=== PATIENT | male | born 1985 | race Caucasian/White ===

== ENCOUNTER 2018-12-03 05:51 | Emergency (ER) | payer MEDICAID, OTHER ==
[~2018-12-03] VITALS: Ht 175.3 cm; Wt 63.5 kg
--- OUTSIDE RECORDS SUMMARY | 2018-12-03 05:58 | XMS REPORT ---
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 Phone Ender MAE Unavailable PROBLEMS Type Condition ICD9-CM Code [id number] Code Onset Dates Condition Status SNOMED Code Problem Intermittent explosive disorder in adult F63.81 Active 911515676 Problem Uncomplicated alcohol dependence F10.20 Active 91659809 Problem Alcohol abuse F10.10 Active 19281137 Problem Reactive depression F32.9 Active 04108829 Problem Anxiety and depression F41.8 Active 314575686 ALLERGIES No Information ENCOUNTERS Encounter Location Date Diagnosis [place] [id number] [place] [address] 15535- 8398 Nov, Alcohol abuse F10.10 ; Uncomplicated alcohol dependence F10.20 ; Intermittent explosive disorder in adult F63.81 and Anxiety and depression F41.8 [place] [id number] [place] [address] 97230- 0178 30 Oct, 2017 Alcohol abuse F10.10 ; Anxiety and depression F41.8 ; Uncomplicated alcohol dependence F10.20 and Intermittent explosive disorder in adult F63.[address] [place] [address] 07466- 4058 Oct, Reactive depression F32.9 ; Anxiety and depression F41.8 ; Uncomplicated alcohol dependence F10.20 ; Intermittent explosive disorder in adult F63.81 and Alcohol abuse F10.10 [place] [id number] [place] [address] 40251- 2831 Oct, Reactive depression F32.9 ; Anxiety and depression F41.8 ; Alcohol abuse F10.10 ; Uncomplicated alcohol dependence F10.20 and Intermittent explosive disorder in adult F63.[address] [id number] [address] Oct, Alcohol abuse F10.10 ; Anxiety and depression F41.8 and Reactive depression F32.9 [place] [address] [place] [id number] [place] [address] 28145- 5676 Oct, Alcohol abuse F10.10 ; Anxiety and depression F41.8 and Reactive depression F32.9 [place] [address] [place] [id number] [place] [address] 93484- 2332 Aug, Reactive depression F32.9 ; Alcohol abuse F10.10 ; Anxiety and depression F41.8 ; Intermittent explosive disorder in adult F63.81 and Uncomplicated alcohol dependence F10.20 [place] [address] [place] [id number] [place] [address] 98520- 2814 Aug, Alcohol abuse F10.10 ; Anxiety and depression F41.8 ; Reactive depression F32.9 ; Uncomplicated alcohol dependence F10.20 and Intermittent explosive disorder in adult F63.81 [place] [address] [place] [id number] [place] [address] 11540- 2614 Aug, Alcohol abuse F10.10 ; Anxiety and depression F41.8 ; Reactive depression F32.9 and Uncomplicated alcohol dependence F10.20 [place] [address] [place] [address] 16816- 3186 Jul, Alcohol abuse F10.10 ; Anxiety and depression F41.8 ; Reactive depression F32.9 and Uncomplicated alcohol dependence F10.20 [place] [address] [place] [address] 88941- 4280 Jul, Reactive depression F32.9 ; Anxiety and depression F41.8 ; Alcohol abuse F10.10 and Uncomplicated alcohol dependence F10.20 [place] [address] [place] [address] 03011- 8931 Jul, Reactive depression F32.9 ; Anxiety and depression F41.8 ; Alcohol abuse F10.10 and Uncomplicated alcohol dependence F10.20 [place] [address] [id number] [address] 27[address] Jul, Alcohol abuse F10.10 ; Anxiety and depression F41.8 ; Reactive depression F32.9 and Uncomplicated alcohol dependence F10.20 [place] [address] [place] [id number] [place] [address] 81224- 7716 May, Reactive depression F32.9 ; Anxiety and depression F41.8 and Alcohol abuse F10.10 [place] [address] [place] [id number] [place] [address] 56972- 4124 May, Alcohol abuse F10.10 ; Anxiety and depression F41.8 and Reactive depression F32.9 [place] [id number] [place] [address] 81944- 4901 May, Alcohol abuse F10.10 ; Anxiety and depression F41.8 and Reactive depression F32.9 [place] [address] [place] [address] 35831- 8040 May, Reactive depression F32.9 ; Anxiety and depression F41.8 and Alcohol abuse F10.10 IMMUNIZATIONS No Known Immunizations SOCIAL HISTORY Never Assessed REASON FOR VISIT f/u PLAN OF CARE Activity Details Follow Up Next available Reason:Depression, anger, anxiety VITAL SIGNS MEDICATIONS Unknown Medications RESULTS No Results PROCEDURES Procedure Date Ordered Result Body Site Psychotherapy, patient &/family, 30 minutes, established patient November 27, 2017 INSTRUCTIONS MEDICATIONS ADMINISTERED No Known Medications
--- OUTSIDE RECORDS SUMMARY | 2018-12-03 05:58 | XMS REPORT ---
Author Author MAE Handley Organization [facility] Address [address] [place] [address] Care Team Providers Care Stadium Manager Name Role Phone Ender MAE Unavailable PROBLEMS Type Condition ICD9-CM Code [id number] Code Onset Dates Condition Status SNOMED Code Problem Intermittent explosive disorder in adult F63.81 Active 781470633 Problem Uncomplicated alcohol dependence F10.20 Active 57600893 Problem Alcohol abuse F10.10 Active 05980340 Problem Reactive depression F32.9 Active 94163858 Problem Anxiety and depression F41.8 Active 622337290 ALLERGIES No Information ENCOUNTERS Encounter Location Date Diagnosis [place] [id number] [place] [address] 56533- 8736 Nov, Alcohol abuse F10.10 ; Uncomplicated alcohol dependence F10.20 ; Intermittent explosive disorder in adult F63.81 and Anxiety and depression F41.8 [place] [id number] [place] [address] 53618- 7247 30 Oct, 2017 Alcohol abuse F10.10 ; Anxiety and depression F41.8 ; Uncomplicated alcohol dependence F10.20 and Intermittent explosive disorder in adult F63.[address] [place] [address] 64277- 3190 Oct, Reactive depression F32.9 ; Anxiety and depression F41.8 ; Uncomplicated alcohol dependence F10.20 ; Intermittent explosive disorder in adult F63.81 and Alcohol abuse F10.10 [place] [id number] [place] [address] 34092- 6643 Oct, Reactive depression F32.9 ; Anxiety and depression F41.8 ; Alcohol abuse F10.10 ; Uncomplicated alcohol dependence F10.20 and Intermittent explosive disorder in adult F63.[address] [id number] [address] 69[address] Oct, Alcohol abuse F10.10 ; Anxiety and depression F41.8 and Reactive depression F32.9 [place] [address] [place] [id number] [place] [address] 29259- 4868 Oct, Alcohol abuse F10.10 ; Anxiety and depression F41.8 and Reactive depression F32.9 [place] [address] [place] [id number] [place] [address] 50925- 0776 Aug, Reactive depression F32.9 ; Alcohol abuse F10.10 ; Anxiety and depression F41.8 ; Intermittent explosive disorder in adult F63.81 and Uncomplicated alcohol dependence F10.20 [place] [address] [place] [id number] [place] [address] 44384- 3648 Aug, Alcohol abuse F10.10 ; Anxiety and depression F41.8 ; Reactive depression F32.9 ; Uncomplicated alcohol dependence F10.20 and Intermittent explosive disorder in adult F63.81 [place] [address] [place] [id number] [place] [address] 30685- 1836 Aug, Alcohol abuse F10.10 ; Anxiety and depression F41.8 ; Reactive depression F32.9 and Uncomplicated alcohol dependence F10.20 [place] [address] [place] [address] 14616- 6684 Jul, Alcohol abuse F10.10 ; Anxiety and depression F41.8 ; Reactive depression F32.9 and Uncomplicated alcohol dependence F10.20 [place] [address] [place] [address] 38211- 6881 Jul, Reactive depression F32.9 ; Anxiety and depression F41.8 ; Alcohol abuse F10.10 and Uncomplicated alcohol dependence F10.20 [place] [address] [place] [address] 07980- 4509 Jul, Reactive depression F32.9 ; Anxiety and depression F41.8 ; Alcohol abuse F10.10 and Uncomplicated alcohol dependence F10.20 [place] [address] [place] [id number] [address] 6153 Jul, Alcohol abuse F10.10 ; Anxiety and depression F41.8 ; Reactive depression F32.9 and Uncomplicated alcohol dependence F10.20 [place] [address] [place] [id number] [place] [address] 42889- 5533 May, Reactive depression F32.9 ; Anxiety and depression F41.8 and Alcohol abuse F10.10 [place] [address] [place] [id number] [place] [address] 00372- 6463 May, Alcohol abuse F10.10 ; Anxiety and depression F41.8 and Reactive depression F32.9 [place] [address] [place] [id number] [place] [address] 37961- 8389 May, Alcohol abuse F10.10 ; Anxiety and depression F41.8 and Reactive depression F32.9 [place] [address] [place] [address] 98414- 1485 May, Reactive depression F32.9 ; Anxiety and depression F41.8 and Alcohol abuse F10.10 IMMUNIZATIONS No Known Immunizations SOCIAL HISTORY Never Assessed REASON FOR VISIT f/u PLAN OF CARE Activity Details Follow Up 1 Week Reason:Depression, anger VITAL SIGNS MEDICATIONS Unknown Medications RESULTS No Results PROCEDURES Procedure Date Ordered Result Body Site Psychotherapy, patient &/family, 30 minutes, established patient November 19, 2017 INSTRUCTIONS MEDICATIONS ADMINISTERED No Known Medications
--- OUTSIDE RECORDS SUMMARY | 2018-12-03 05:58 | XMS REPORT ---
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 Role Phone Ender MAE Unavailable PROBLEMS Type Condition ICD9-CM Code [id number] Code Onset Dates Condition Status SNOMED Code Problem Intermittent explosive disorder in adult F63.81 Active 707808381 Problem Uncomplicated alcohol dependence F10.20 Active 25829317 Problem Alcohol abuse F10.10 Active 08437180 Problem Reactive depression F32.9 Active 34561735 Problem Anxiety and depression F41.8 Active 165083108 ALLERGIES No Information ENCOUNTERS Encounter Location Date Diagnosis [place] [id number] [place] [address] 56027- 7826 Nov, Alcohol abuse F10.10 ; Uncomplicated alcohol dependence F10.20 ; Intermittent explosive disorder in adult F63.81 and Anxiety and depression F41.8 [place] [id number] [place] [address] 17711- 4320 30 Oct, 2017 Alcohol abuse F10.10 ; Anxiety and depression F41.8 ; Uncomplicated alcohol dependence F10.20 and Intermittent explosive disorder in adult F63.81 [address] [place] [address] 77223- 4043 Oct, Reactive depression F32.9 ; Anxiety and depression F41.8 ; Uncomplicated alcohol dependence F10.20 ; Intermittent explosive disorder in adult F63.81 and Alcohol abuse F10.10 [place] [id number] [place] [address] 73671- 4085 Oct, Reactive depression F32.9 ; Anxiety and depression F41.8 ; Alcohol abuse F10.10 ; Uncomplicated alcohol dependence F10.20 and Intermittent explosive disorder in adult F63.[address] [id number] [address] 9[address] Oct, Alcohol abuse F10.10 ; Anxiety and depression F41.8 and Reactive depression F32.9 [place] [address] [place] [id number] [place] [address] 52331- 5372 Oct, Alcohol abuse F10.10 ; Anxiety and depression F41.8 and Reactive depression F32.9 [place] [address] [place] [id number] [place] [address] 03481- 6891 Aug, Reactive depression F32.9 ; Alcohol abuse F10.10 ; Anxiety and depression F41.8 ; Intermittent explosive disorder in adult F63.81 and Uncomplicated alcohol dependence F10.20 [place] [address] [place] [id number] [place] [address] 62940- 6080 Aug, Alcohol abuse F10.10 ; Anxiety and depression F41.8 ; Reactive depression F32.9 ; Uncomplicated alcohol dependence F10.20 and Intermittent explosive disorder in adult F63.81 [place] [address] [place] [id number] [place] [address] 09741- 9630 Aug, Alcohol abuse F10.10 ; Anxiety and depression F41.8 ; Reactive depression F32.9 and Uncomplicated alcohol dependence F10.20 [place] [address] [place] [address] 50118- 5466 Jul, Alcohol abuse F10.10 ; Anxiety and depression F41.8 ; Reactive depression F32.9 and Uncomplicated alcohol dependence F10.20 [place] [address] [place] [address] 39500- 1103 Jul, Reactive depression F32.9 ; Anxiety and depression F41.8 ; Alcohol abuse F10.10 and Uncomplicated alcohol dependence F10.20 [place] [address] [place] [address] 44704- 9530 Jul, Reactive depression F32.9 ; Anxiety and depression F41.8 ; Alcohol abuse F10.10 and Uncomplicated alcohol dependence F10.20 [place] [address] [id number] [address] 1968 Jul, Alcohol abuse F10.10 ; Anxiety and depression F41.8 ; Reactive depression F32.9 and Uncomplicated alcohol dependence F10.20 [place] [address] [place] [id number] [place] [address] 78790- 6735 May, Reactive depression F32.9 ; Anxiety and depression F41.8 and Alcohol abuse F10.10 [place] [address] [place] [id number] [place] [address] 80545- 4118 May, Alcohol abuse F10.10 ; Anxiety and depression F41.8 and Reactive depression F32.9 [place] [address] [place] [id number] [place] [address] 99200- 2853 May, Alcohol abuse F10.10 ; Anxiety and depression F41.8 and Reactive depression F32.9 [place] [address] [place] [address] 68626- 0075 May, Reactive depression F32.9 ; Anxiety and depression F41.8 and Alcohol abuse F10.10 IMMUNIZATIONS No Known Immunizations SOCIAL HISTORY Never Assessed REASON FOR VISIT f/u PLAN OF CARE Activity Details Follow Up 1 Week Reason:Anger management, alcohol addiction, relationship problems VITAL SIGNS MEDICATIONS Unknown Medications RESULTS No Results PROCEDURES Procedure Date Ordered Result Body Site Psychotherapy, patient &/family, 45 minutes, established patient November 25, 2017 INSTRUCTIONS MEDICATIONS ADMINISTERED No Known Medications
--- OUTSIDE RECORDS SUMMARY | 2018-12-03 05:58 | XMS REPORT ---
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 Name Role Phone Ender MAE Unavailable PROBLEMS Type Condition ICD9-CM Code [id number] Code Onset Dates Condition Status SNOMED Code Problem Intermittent explosive disorder in adult F63.81 Active 583053474 Problem Uncomplicated alcohol dependence F10.20 Active 53056348 Problem Alcohol abuse F10.10 Active 68560041 Problem Reactive depression F32.9 Active 82540554 Problem Anxiety and depression F41.8 Active 242123647 ALLERGIES No Information ENCOUNTERS Encounter Location Date Diagnosis [place] [id number] [place] [address] 32975- 8086 Nov, Alcohol abuse F10.10 ; Uncomplicated alcohol dependence F10.20 ; Intermittent explosive disorder in adult F63.81 and Anxiety and depression F41.8 [place] [id number] [place] [address] 77562- 2501 30 Oct, 2017 Alcohol abuse F10.10 ; Anxiety and depression F41.8 ; Uncomplicated alcohol dependence F10.20 and Intermittent explosive disorder in adult F63.81 [address] [place] [address] 83443- 4870 Oct, Reactive depression F32.9 ; Anxiety and depression F41.8 ; Uncomplicated alcohol dependence F10.20 ; Intermittent explosive disorder in adult F63.81 and Alcohol abuse F10.10 [place] [id number] [place] [address] 93095- 7279 Oct, Reactive depression F32.9 ; Anxiety and depression F41.8 ; Alcohol abuse F10.10 ; Uncomplicated alcohol dependence F10.20 and Intermittent explosive disorder in adult F63.[address] [id number] [address]- [address]77 Oct, Alcohol abuse F10.10 ; Anxiety and depression F41.8 and Reactive depression F32.9 [place] [address] [place] [id number] [place] [address] 45952- 0524 Oct, Alcohol abuse F10.10 ; Anxiety and depression F41.8 and Reactive depression F32.9 [place] [address] [place] [id number] [place] [address] 30708- 6101 Aug, Reactive depression F32.9 ; Alcohol abuse F10.10 ; Anxiety and depression F41.8 ; Intermittent explosive disorder in adult F63.81 and Uncomplicated alcohol dependence F10.20 [place] [address] [place] [id number] [place] [address] 47010- 0659 Aug, Alcohol abuse F10.10 ; Anxiety and depression F41.8 ; Reactive depression F32.9 ; Uncomplicated alcohol dependence F10.20 and Intermittent explosive disorder in adult F63.81 [place] [address] [place] [id number] [place] [address] 05949- 2629 Aug, Alcohol abuse F10.10 ; Anxiety and depression F41.8 ; Reactive depression F32.9 and Uncomplicated alcohol dependence F10.20 [place] [address] [place] [address] 07298- 5702 Jul, Alcohol abuse F10.10 ; Anxiety and depression F41.8 ; Reactive depression F32.9 and Uncomplicated alcohol dependence F10.20 [place] [address] [place] [address] 31410- 9800 Jul, Reactive depression F32.9 ; Anxiety and depression F41.8 ; Alcohol abuse F10.10 and Uncomplicated alcohol dependence F10.20 [place] [address] [place] [address] 65893- 8786 Jul, Reactive depression F32.9 ; Anxiety and depression F41.8 ; Alcohol abuse F10.10 and Uncomplicated alcohol dependence F10.20 [place] [address] [id number] [address]- 1421 Jul, Alcohol abuse F10.10 ; Anxiety and depression F41.8 ; Reactive depression F32.9 and Uncomplicated alcohol dependence F10.20 [place] [address] [place] [address] [id number] [place] [address] 90482- 6708 May, Reactive depression F32.9 ; Anxiety and depression F41.8 and Alcohol abuse F10.10 [place] [address] [place] [id number] [place] [address] 61143- 6729 May, Alcohol abuse F10.10 ; Anxiety and depression F41.8 and Reactive depression F32.9 [place] [id number] [place] [address] 93214- 8192 May, Alcohol abuse F10.10 ; Anxiety and depression F41.8 and Reactive depression F32.9 [place] [address] [place] [address] 01612- 2068 May, Reactive depression F32.9 ; Anxiety and depression F41.8 and Alcohol abuse F10.10 IMMUNIZATIONS No Known Immunizations SOCIAL HISTORY Never Assessed REASON FOR VISIT f/u PLAN OF CARE Activity Details Follow Up 2 Week Reason:substance addiction, depression, anxiety, relationship problems VITAL SIGNS MEDICATIONS Unknown Medications RESULTS No Results PROCEDURES Procedure Date Ordered Result Body Site Psychotherapy, patient &/family, 45 minutes, established patient November 11, 2017 INSTRUCTIONS MEDICATIONS ADMINISTERED No Known Medications
--- OUTSIDE RECORDS SUMMARY | 2018-12-03 05:58 | XMS REPORT ---
Author Author MAE Handley Organization [facility] Address [address] [place] [address] Care Team Providers Care Food Service Aide Name Role Phone Ender MAE Unavailable PROBLEMS Type Condition ICD9-CM Code CKL90-OS Code Onset Dates Condition Status SNOMED Code Problem Intermittent explosive disorder in adult F63.81 Active 524009833 Problem Uncomplicated alcohol dependence F10.20 Active 45220275 Problem Alcohol abuse F10.10 Active 93011781 Problem Reactive depression F32.9 Active 73209914 Problem Anxiety and depression F41.8 Active 958152806 ALLERGIES No Information ENCOUNTERS Encounter Location Date Diagnosis [place] [id number] [place] [address] 40035- 1289 Nov, Alcohol abuse F10.10 ; Uncomplicated alcohol dependence F10.20 ; Intermittent explosive disorder in adult F63.81 and Anxiety and depression F41.8 [place] [id number] [place] [address] 42874- 6204 30 Oct, 2017 Alcohol abuse F10.10 ; Anxiety and depression F41.8 ; Uncomplicated alcohol dependence F10.20 and Intermittent explosive disorder in adult F63.81 [address] [place] [address] 90301- 4393 Oct, Reactive depression F32.9 ; Anxiety and depression F41.8 ; Uncomplicated alcohol dependence F10.20 ; Intermittent explosive disorder in adult F63.81 and Alcohol abuse F10.10 [place] [id number] [place] [address] 15844- 0413 Oct, Reactive depression F32.9 ; Anxiety and depression F41.8 ; Alcohol abuse F10.10 ; Uncomplicated alcohol dependence F10.20 and Intermittent explosive disorder in adult F63.[address] [id number] [address]- 3440 Oct, Alcohol abuse F10.10 ; Anxiety and depression F41.8 and Reactive depression F32.9 [place] [address] [place] [id number] [place] [address] 76844- 4129 Oct, Alcohol abuse F10.10 ; Anxiety and depression F41.8 and Reactive depression F32.9 [place] [address] [place] [id number] [place] [address] 84882- 0327 Aug, Reactive depression F32.9 ; Alcohol abuse F10.10 ; Anxiety and depression F41.8 ; Intermittent explosive disorder in adult F63.81 and Uncomplicated alcohol dependence F10.20 [place] [address] [place] [id number] [place] [address] 44378- 6957 Aug, Alcohol abuse F10.10 ; Anxiety and depression F41.8 ; Reactive depression F32.9 ; Uncomplicated alcohol dependence F10.20 and Intermittent explosive disorder in adult F63.81 [place] [address] [place] [id number] [place] [address] 09564- 8302 Aug, Alcohol abuse F10.10 ; Anxiety and depression F41.8 ; Reactive depression F32.9 and Uncomplicated alcohol dependence F10.20 [place] [address] [place] [address] 64143- 8457 Jul, Alcohol abuse F10.10 ; Anxiety and depression F41.8 ; Reactive depression F32.9 and Uncomplicated alcohol dependence F10.20 [place] [address] [place] [address] 82338- 4044 Jul, Reactive depression F32.9 ; Anxiety and depression F41.8 ; Alcohol abuse F10.10 and Uncomplicated alcohol dependence F10.20 [place] [address] [place] [address] 79501- 3259 Jul, Reactive depression F32.9 ; Anxiety and depression F41.8 ; Alcohol abuse F10.10 and Uncomplicated alcohol dependence F10.20 [place] [address] [id number] [address]- 3150 Jul, Alcohol abuse F10.10 ; Anxiety and depression F41.8 ; Reactive depression F32.9 and Uncomplicated alcohol dependence F10.20 [place] [address] [place] [id number] [place] [address] 44600- 0935 May, Reactive depression F32.9 ; Anxiety and depression F41.8 and Alcohol abuse F10.10 [place] [address] [place] [id number] [place] [address] 69368- 6324 May, Alcohol abuse F10.10 ; Anxiety and depression F41.8 and Reactive depression F32.9 [place] [address] [place] [id number] [place] [address] 83725- 5069 May, Alcohol abuse F10.10 ; Anxiety and depression F41.8 and Reactive depression F32.9 [place] [address] [place] [address] 45761- 0014 May, Reactive depression F32.9 ; Anxiety and depression F41.8 and Alcohol abuse F10.10 IMMUNIZATIONS No Known Immunizations SOCIAL HISTORY Never Assessed REASON FOR VISIT f/u PLAN OF CARE Activity Details Follow Up Not rescheduled Reason:Depression, anger management, alcoholism VITAL SIGNS MEDICATIONS Unknown Medications RESULTS No Results PROCEDURES Procedure Date Ordered Result Body Site Psychotherapy, patient &/family, 45 minutes, established patient December 09, 2017 INSTRUCTIONS MEDICATIONS ADMINISTERED No Known Medications
--- OUTSIDE RECORDS SUMMARY | 2018-12-03 05:59 | XMS REPORT ---
Author Author MAE Handley Organization [facility] Address [address] [place] [address] Care Team Providers Care Datapower Developer Name Role Phone Ender MAE Unavailable PROBLEMS Type Condition ICD9-CM Code LTS65-YA Code Onset Dates Condition Status SNOMED Code Problem Intermittent explosive disorder in adult F63.81 Active 130519310 Problem Uncomplicated alcohol dependence F10.20 Active 78896091 Problem Alcohol abuse F10.10 Active 48794564 Problem Reactive depression F32.9 Active 28897917 Problem Anxiety and depression F41.8 Active 325188489 ALLERGIES No Information ENCOUNTERS Encounter Location Date Diagnosis [place] [id number] [place] [address] 78590- 7632 Nov, Alcohol abuse F10.10 ; Uncomplicated alcohol dependence F10.20 ; Intermittent explosive disorder in adult F63.81 and Anxiety and depression F41.8 [place] [id number] [place] [address] 34999- 2761 30 Oct, 2017 Alcohol abuse F10.10 ; Anxiety and depression F41.8 ; Uncomplicated alcohol dependence F10.20 and Intermittent explosive disorder in adult F63.[address] [place] [address] 76497- 1102 Oct, Reactive depression F32.9 ; Anxiety and depression F41.8 ; Uncomplicated alcohol dependence F10.20 ; Intermittent explosive disorder in adult F63.81 and Alcohol abuse F10.10 [place] [id number] [place] [address] 13625- 1663 Oct, Reactive depression F32.9 ; Anxiety and depression F41.8 ; Alcohol abuse F10.10 ; Uncomplicated alcohol dependence F10.20 and Intermittent explosive disorder in adult F63.[address] [id number] [address] Oct, Alcohol abuse F10.10 ; Anxiety and depression F41.8 and Reactive depression F32.9 [place] [address] [place] [id number] [place] [address] 04542- 0831 Oct, Alcohol abuse F10.10 ; Anxiety and depression F41.8 and Reactive depression F32.9 [place] [address] [place] [id number] [place] [address] 08992- 0031 Aug, Reactive depression F32.9 ; Alcohol abuse F10.10 ; Anxiety and depression F41.8 ; Intermittent explosive disorder in adult F63.81 and Uncomplicated alcohol dependence F10.20 [place] [address] [place] [address] [id number] [place] [address] 33744- 7892 Aug, Alcohol abuse F10.10 ; Anxiety and depression F41.8 ; Reactive depression F32.9 ; Uncomplicated alcohol dependence F10.20 and Intermittent explosive disorder in adult F63.81 [place] [address] [id number] [place] [address] 94021- 0291 Aug, Alcohol abuse F10.10 ; Anxiety and depression F41.8 ; Reactive depression F32.9 and Uncomplicated alcohol dependence F10.20 [place] [address] [place] [address] 31548- 1587 Jul, Alcohol abuse F10.10 ; Anxiety and depression F41.8 ; Reactive depression F32.9 and Uncomplicated alcohol dependence F10.20 [place] [address] [place] [address] 49778- 0316 Jul, Reactive depression F32.9 ; Anxiety and depression F41.8 ; Alcohol abuse F10.10 and Uncomplicated alcohol dependence F10.20 [place] [address] [place] [address] 44474- 3015 Jul, Reactive depression F32.9 ; Anxiety and depression F41.8 ; Alcohol abuse F10.10 and Uncomplicated alcohol dependence F10.20 [place] [address] [place] [id number] [address] 3912 Jul, Alcohol abuse F10.10 ; Anxiety and depression F41.8 ; Reactive depression F32.9 and Uncomplicated alcohol dependence F10.20 [place] [address] [id number] [place] [address] 14606- 3365 May, Reactive depression F32.9 ; Anxiety and depression F41.8 and Alcohol abuse F10.10 [place] [address] [place] [id number] [place] [address] 21084- 2036 May, Alcohol abuse F10.10 ; Anxiety and depression F41.8 and Reactive depression F32.9 [place] [id number] [place] [address] 80790- 8879 May, Alcohol abuse F10.10 ; Anxiety and depression F41.8 and Reactive depression F32.9 [place] [id number] [place] [address] 84153- 9603 May, Reactive depression F32.9 ; Anxiety and depression F41.8 and Alcohol abuse F10.10 IMMUNIZATIONS No Known Immunizations SOCIAL HISTORY Never Assessed REASON FOR VISIT intake PLAN OF CARE Activity Details Follow Up 2 Weeks Reason:Depression, anxiety VITAL SIGNS MEDICATIONS Unknown Medications RESULTS No Results PROCEDURES Procedure Date Ordered Result Body Site Psych diagnostic evaluation, new patient May 15, 2017 INSTRUCTIONS MEDICATIONS ADMINISTERED No Known Medications
--- OUTSIDE RECORDS SUMMARY | 2018-12-03 05:59 | XMS REPORT ---
Author Author MAE Handley Organization [facility] Address [address] [place] [address] Care Team Providers Care Logistics Technician Name Role Phone Ender MAE Unavailable PROBLEMS Type Condition ICD9-CM Code UNA90-YW Code Onset Dates Condition Status SNOMED Code Problem Intermittent explosive disorder in adult F63.81 Active 149232157 Problem Uncomplicated alcohol dependence F10.20 Active 35287924 Problem Alcohol abuse F10.10 Active 42136096 Problem Reactive depression F32.9 Active 56479190 Problem Anxiety and depression F41.8 Active 619611246 ALLERGIES No Information ENCOUNTERS Encounter Location Date Diagnosis [place] [id number] [place] [address] 65259- 1957 Nov, Alcohol abuse F10.10 ; Uncomplicated alcohol dependence F10.20 ; Intermittent explosive disorder in adult F63.81 and Anxiety and depression F41.8 [place] [id number] [place] [address] 97243- 4515 30 Oct, 2017 Alcohol abuse F10.10 ; Anxiety and depression F41.8 ; Uncomplicated alcohol dependence F10.20 and Intermittent explosive disorder in adult F63.[address] [place] [address] 56796- 6807 Oct, Reactive depression F32.9 ; Anxiety and depression F41.8 ; Uncomplicated alcohol dependence F10.20 ; Intermittent explosive disorder in adult F63.81 and Alcohol abuse F10.10 [place] [id number] [place] [address] 74010- 4048 Oct, Reactive depression F32.9 ; Anxiety and depression F41.8 ; Alcohol abuse F10.10 ; Uncomplicated alcohol dependence F10.20 and Intermittent explosive disorder in adult F63.[address] [id number] [address] Oct, Alcohol abuse F10.10 ; Anxiety and depression F41.8 and Reactive depression F32.9 [place] [address] [place] [id number] [place] [address] 69286- 8772 Oct, Alcohol abuse F10.10 ; Anxiety and depression F41.8 and Reactive depression F32.9 [place] [address] [place] [id number] [place] [address] 65760- 5088 Aug, Reactive depression F32.9 ; Alcohol abuse F10.10 ; Anxiety and depression F41.8 ; Intermittent explosive disorder in adult F63.81 and Uncomplicated alcohol dependence F10.20 [place] [address] [place] [id number] [place] [address] 69950- 9010 Aug, Alcohol abuse F10.10 ; Anxiety and depression F41.8 ; Reactive depression F32.9 ; Uncomplicated alcohol dependence F10.20 and Intermittent explosive disorder in adult F63.81 [place] [address] [place] [id number] [place] [address] 98691- 4707 Aug, Alcohol abuse F10.10 ; Anxiety and depression F41.8 ; Reactive depression F32.9 and Uncomplicated alcohol dependence F10.20 [place] [address] [place] [address] 07002- 5665 Jul, Alcohol abuse F10.10 ; Anxiety and depression F41.8 ; Reactive depression F32.9 and Uncomplicated alcohol dependence F10.20 [place] [address] [place] [address] 38519- 0839 Jul, Reactive depression F32.9 ; Anxiety and depression F41.8 ; Alcohol abuse F10.10 and Uncomplicated alcohol dependence F10.20 [place] [address] [place] [address] 79123- 5498 Jul, Reactive depression F32.9 ; Anxiety and depression F41.8 ; Alcohol abuse F10.10 and Uncomplicated alcohol dependence F10.20 [place] [address] [id number] [address] 8934 Jul, Alcohol abuse F10.10 ; Anxiety and depression F41.8 ; Reactive depression F32.9 and Uncomplicated alcohol dependence F10.20 [place] [address] [place] [id number] [place] [address] 47283- 3087 May, Reactive depression F32.9 ; Anxiety and depression F41.8 and Alcohol abuse F10.10 [place] [address] [place] [id number] [place] [address] 99986- 9338 May, Alcohol abuse F10.10 ; Anxiety and depression F41.8 and Reactive depression F32.9 [place] [address] [place] [id number] [place] [address] 75138- 8164 May, Alcohol abuse F10.10 ; Anxiety and depression F41.8 and Reactive depression F32.9 [place] [address] [place] [address] 03705- 9291 May, Reactive depression F32.9 ; Anxiety and depression F41.8 and Alcohol abuse F10.10 IMMUNIZATIONS No Known Immunizations SOCIAL HISTORY Never Assessed REASON FOR VISIT f/u PLAN OF CARE Activity Details Follow Up 3 Weeks Reason:Alcohol dependence, alcohol abuse VITAL SIGNS MEDICATIONS Unknown Medications RESULTS No Results PROCEDURES Procedure Date Ordered Result Body Site Psychotherapy, patient &/family, 45 minutes, established patient Sep 02, 2017 INSTRUCTIONS MEDICATIONS ADMINISTERED No Known Medications
--- OUTSIDE RECORDS SUMMARY | 2018-12-03 05:59 | XMS REPORT ---
Author Author MAE Handley Organization [facility] Address [address] [place] [address] Care Team Providers Care Sprinkler Fitter Apprentice Name Role Phone Ender MAE Unavailable PROBLEMS Type Condition ICD9-CM Code XCI45-JG Code Onset Dates Condition Status SNOMED Code Problem Intermittent explosive disorder in adult F63.81 Active 656837281 Problem Uncomplicated alcohol dependence F10.20 Active 40854362 Problem Alcohol abuse F10.10 Active 20592082 Problem Reactive depression F32.9 Active 68127527 Problem Anxiety and depression F41.8 Active 283895252 ALLERGIES No Information ENCOUNTERS Encounter Location Date Diagnosis [place] [id number] [place] [address] 24222- 5682 Nov, Alcohol abuse F10.10 ; Uncomplicated alcohol dependence F10.20 ; Intermittent explosive disorder in adult F63.81 and Anxiety and depression F41.8 [place] [id number] [place] [address] 18694- 8837 30 Oct, 2017 Alcohol abuse F10.10 ; Anxiety and depression F41.8 ; Uncomplicated alcohol dependence F10.20 and Intermittent explosive disorder in adult F63.81 [address] [place] [address] 38381- 2077 Oct, Reactive depression F32.9 ; Anxiety and depression F41.8 ; Uncomplicated alcohol dependence F10.20 ; Intermittent explosive disorder in adult F63.81 and Alcohol abuse F10.10 [place] [id number] [place] [address] 41451- 4060 Oct, Reactive depression F32.9 ; Anxiety and depression F41.8 ; Alcohol abuse F10.10 ; Uncomplicated alcohol dependence F10.20 and Intermittent explosive disorder in adult F63.[address] [id number] [address]- 1287 Oct, Alcohol abuse F10.10 ; Anxiety and depression F41.8 and Reactive depression F32.9 [place] [address] [place] [id number] [place] [address] 13967- 9127 Oct, Alcohol abuse F10.10 ; Anxiety and depression F41.8 and Reactive depression F32.9 [place] [address] [place] [id number] [place] [address] 75556- 5820 Aug, Reactive depression F32.9 ; Alcohol abuse F10.10 ; Anxiety and depression F41.8 ; Intermittent explosive disorder in adult F63.81 and Uncomplicated alcohol dependence F10.20 [place] [address] [place] [id number] [place] [address] 76826- 3633 Aug, Alcohol abuse F10.10 ; Anxiety and depression F41.8 ; Reactive depression F32.9 ; Uncomplicated alcohol dependence F10.20 and Intermittent explosive disorder in adult F63.81 [place] [address] [place] [id number] [place] [address] 85433- 0185 Aug, Alcohol abuse F10.10 ; Anxiety and depression F41.8 ; Reactive depression F32.9 and Uncomplicated alcohol dependence F10.20 [place] [address] [place] [address] 48990- 6975 Jul, Alcohol abuse F10.10 ; Anxiety and depression F41.8 ; Reactive depression F32.9 and Uncomplicated alcohol dependence F10.20 [place] [address] [place] [address] 09470- 5635 Jul, Reactive depression F32.9 ; Anxiety and depression F41.8 ; Alcohol abuse F10.10 and Uncomplicated alcohol dependence F10.20 [place] [address] [place] [address] 83300- 5874 Jul, Reactive depression F32.9 ; Anxiety and depression F41.8 ; Alcohol abuse F10.10 and Uncomplicated alcohol dependence F10.20 [place] [address] [id number] [address]- 5940 Jul, Alcohol abuse F10.10 ; Anxiety and depression F41.8 ; Reactive depression F32.9 and Uncomplicated alcohol dependence F10.20 [place] [address] [place] [id number] [place] [address] 81659- 6651 May, Reactive depression F32.9 ; Anxiety and depression F41.8 and Alcohol abuse F10.10 [place] [address] [place] [id number] [place] [address] 27801- 7787 May, Alcohol abuse F10.10 ; Anxiety and depression F41.8 and Reactive depression F32.9 [place] [address] [place] [id number] [place] [address] 18340- 3546 May, Alcohol abuse F10.10 ; Anxiety and depression F41.8 and Reactive depression F32.9 [place] [address] [place] [address] 51998- 7079 May, Reactive depression F32.9 ; Anxiety and depression F41.8 and Alcohol abuse F10.10 IMMUNIZATIONS No Known Immunizations SOCIAL HISTORY Never Assessed REASON FOR VISIT f/u PLAN OF CARE Activity Details Follow Up 1 Week Reason:Substance abuse, depression, anxiety VITAL SIGNS MEDICATIONS Unknown Medications RESULTS No Results PROCEDURES Procedure Date Ordered Result Body Site Psychotherapy, patient &/family, 60 minutes, established patient Jul 31, 2017 INSTRUCTIONS MEDICATIONS ADMINISTERED No Known Medications
--- OUTSIDE RECORDS SUMMARY | 2018-12-03 05:59 | XMS REPORT ---
Author Author MAE Handley Organization [facility] Address [address] [place] [address] Care Team Providers Care Decorating Consultant Name Role Phone Ender MAE Unavailable PROBLEMS Type Condition ICD9-CM Code LYR19-SF Code Onset Dates Condition Status SNOMED Code Problem Intermittent explosive disorder in adult F63.81 Active 953678869 Problem Uncomplicated alcohol dependence F10.20 Active 02898358 Problem Alcohol abuse F10.10 Active 34490895 Problem Reactive depression F32.9 Active 91524018 Problem Anxiety and depression F41.8 Active 573268151 ALLERGIES No Information ENCOUNTERS Encounter Location Date Diagnosis [place] [id number] [place] [address] 76475- 4025 Nov, Alcohol abuse F10.10 ; Uncomplicated alcohol dependence F10.20 ; Intermittent explosive disorder in adult F63.81 and Anxiety and depression F41.8 [place] [id number] [place] [address] 29712- 3461 30 Oct, 2017 Alcohol abuse F10.10 ; Anxiety and depression F41.8 ; Uncomplicated alcohol dependence F10.20 and Intermittent explosive disorder in adult F63.81 [address] [place] [address] 73998- 1573 Oct, Reactive depression F32.9 ; Anxiety and depression F41.8 ; Uncomplicated alcohol dependence F10.20 ; Intermittent explosive disorder in adult F63.81 and Alcohol abuse F10.10 [place] [id number] [place] [address] 84308- 2737 Oct, Reactive depression F32.9 ; Anxiety and depression F41.8 ; Alcohol abuse F10.10 ; Uncomplicated alcohol dependence F10.20 and Intermittent explosive disorder in adult F63.[address] [id number] [address]- 1827 Oct, Alcohol abuse F10.10 ; Anxiety and depression F41.8 and Reactive depression F32.9 [place] [address] [place] [address] [id number] [place] [address] 76007- 4497 Oct, Alcohol abuse F10.10 ; Anxiety and depression F41.8 and Reactive depression F32.9 [place] [address] [place] [id number] [place] [address] 74765- 0215 Aug, Reactive depression F32.9 ; Alcohol abuse F10.10 ; Anxiety and depression F41.8 ; Intermittent explosive disorder in adult F63.81 and Uncomplicated alcohol dependence F10.20 [place] [address] [place] [id number] [place] [address] 43727- 5527 Aug, Alcohol abuse F10.10 ; Anxiety and depression F41.8 ; Reactive depression F32.9 ; Uncomplicated alcohol dependence F10.20 and Intermittent explosive disorder in adult F63.81 [place] [address] [place] [id number] [place] [address] 89467- 7403 Aug, Alcohol abuse F10.10 ; Anxiety and depression F41.8 ; Reactive depression F32.9 and Uncomplicated alcohol dependence F10.20 [place] [address] [place] [address] 30980- 3242 Jul, Alcohol abuse F10.10 ; Anxiety and depression F41.8 ; Reactive depression F32.9 and Uncomplicated alcohol dependence F10.20 [place] [address] [place] [address] 13743- 2417 Jul, Reactive depression F32.9 ; Anxiety and depression F41.8 ; Alcohol abuse F10.10 and Uncomplicated alcohol dependence F10.20 [place] [address] [place] [address] 69648- 5068 Jul, Reactive depression F32.9 ; Anxiety and depression F41.8 ; Alcohol abuse F10.10 and Uncomplicated alcohol dependence F10.20 [place] [address] [place] [id number] [address]- 5163 Jul, Alcohol abuse F10.10 ; Anxiety and depression F41.8 ; Reactive depression F32.9 and Uncomplicated alcohol dependence F10.20 [place] [address] [place] [id number] [place] [address] 54626- 4627 May, Reactive depression F32.9 ; Anxiety and depression F41.8 and Alcohol abuse F10.10 [place] [address] [place] [id number] [place] [address] 60684- 1927 May, Alcohol abuse F10.10 ; Anxiety and depression F41.8 and Reactive depression F32.9 [place] [address] [place] [id number] [place] [address] 85253- 7195 May, Alcohol abuse F10.10 ; Anxiety and depression F41.8 and Reactive depression F32.9 [place] [address] [place] [address] 10705- 9674 May, Reactive depression F32.9 ; Anxiety and depression F41.8 and Alcohol abuse F10.10 IMMUNIZATIONS No Known Immunizations SOCIAL HISTORY Never Assessed REASON FOR VISIT f/u PLAN OF CARE Activity Details Follow Up 1 Week Reason:Alcohol abuse, addiction VITAL SIGNS MEDICATIONS Unknown Medications RESULTS No Results PROCEDURES Procedure Date Ordered Result Body Site Psychotherapy, patient &/family, 45 minutes, established patient Oct 09, 2017 INSTRUCTIONS MEDICATIONS ADMINISTERED No Known Medications
--- OUTSIDE RECORDS SUMMARY | 2018-12-03 05:59 | XMS REPORT ---
Author Author MAE Handley Organization [facility] Address [address] [place] [address] Care Team Providers Care Consumer Educator Name Role Phone Ender MAE Unavailable PROBLEMS Type Condition ICD9-CM Code YKL33-IW Code Onset Dates Condition Status SNOMED Code Problem Intermittent explosive disorder in adult F63.81 Active 836389117 Problem Uncomplicated alcohol dependence F10.20 Active 40930190 Problem Alcohol abuse F10.10 Active 75991941 Problem Reactive depression F32.9 Active 42280975 Problem Anxiety and depression F41.8 Active 166526242 ALLERGIES No Information ENCOUNTERS Encounter Location Date Diagnosis [place] [id number] [place] [address] 38447- 1229 Nov, Alcohol abuse F10.10 ; Uncomplicated alcohol dependence F10.20 ; Intermittent explosive disorder in adult F63.81 and Anxiety and depression F41.8 [place] [id number] [place] [address] 80206- 4843 30 Oct, 2017 Alcohol abuse F10.10 ; Anxiety and depression F41.8 ; Uncomplicated alcohol dependence F10.20 and Intermittent explosive disorder in adult F63.81 [address] [place] [address] 65607- 3180 Oct, Reactive depression F32.9 ; Anxiety and depression F41.8 ; Uncomplicated alcohol dependence F10.20 ; Intermittent explosive disorder in adult F63.81 and Alcohol abuse F10.10 [place] [id number] [place] [address] 01798- 6548 Oct, Reactive depression F32.9 ; Anxiety and depression F41.8 ; Alcohol abuse F10.10 ; Uncomplicated alcohol dependence F10.20 and Intermittent explosive disorder in adult F63.[address] [id number] [address]- 0477 Oct, Alcohol abuse F10.10 ; Anxiety and depression F41.8 and Reactive depression F32.9 [place] [address] [place] [id number] [place] [address] 01146- 3629 Oct, Alcohol abuse F10.10 ; Anxiety and depression F41.8 and Reactive depression F32.9 [place] [address] [place] [id number] [place] [address] 70793- 9751 Aug, Reactive depression F32.9 ; Alcohol abuse F10.10 ; Anxiety and depression F41.8 ; Intermittent explosive disorder in adult F63.81 and Uncomplicated alcohol dependence F10.20 [place] [address] [place] [id number] [place] [address] 97530- 8484 Aug, Alcohol abuse F10.10 ; Anxiety and depression F41.8 ; Reactive depression F32.9 ; Uncomplicated alcohol dependence F10.20 and Intermittent explosive disorder in adult F63.81 [place] [address] [place] [id number] [place] [address] 06189- 8380 Aug, Alcohol abuse F10.10 ; Anxiety and depression F41.8 ; Reactive depression F32.9 and Uncomplicated alcohol dependence F10.20 [place] [address] [place] [address] 50695- 8552 Jul, Alcohol abuse F10.10 ; Anxiety and depression F41.8 ; Reactive depression F32.9 and Uncomplicated alcohol dependence F10.20 [place] [address] [place] [address] 36631- 1489 Jul, Reactive depression F32.9 ; Anxiety and depression F41.8 ; Alcohol abuse F10.10 and Uncomplicated alcohol dependence F10.20 [place] [address] [place] [address] 68710- 1411 Jul, Reactive depression F32.9 ; Anxiety and depression F41.8 ; Alcohol abuse F10.10 and Uncomplicated alcohol dependence F10.20 [place] [address] [id number] [address]- 9954 Jul, Alcohol abuse F10.10 ; Anxiety and depression F41.8 ; Reactive depression F32.9 and Uncomplicated alcohol dependence F10.20 [place] [address] [place] [id number] [place] [address] 96567- 9940 May, Reactive depression F32.9 ; Anxiety and depression F41.8 and Alcohol abuse F10.10 [place] [address] [place] [id number] [place] [address] 98826- 8469 May, Alcohol abuse F10.10 ; Anxiety and depression F41.8 and Reactive depression F32.9 [place] [address] [place] [id number] [place] [address] 05156- 3101 May, Alcohol abuse F10.10 ; Anxiety and depression F41.8 and Reactive depression F32.9 [place] [address] [place] [address] 25733- 0867 May, Reactive depression F32.9 ; Anxiety and depression F41.8 and Alcohol abuse F10.10 IMMUNIZATIONS No Known Immunizations SOCIAL HISTORY Never Assessed REASON FOR VISIT f/u PLAN OF CARE Activity Details Follow Up 2 Weeks Reason:Depression, stress, alcohol dependence VITAL SIGNS MEDICATIONS Unknown Medications RESULTS No Results PROCEDURES Procedure Date Ordered Result Body Site Psychotherapy, patient &/family, 60 minutes, established patient Aug 21, 2017 INSTRUCTIONS MEDICATIONS ADMINISTERED No Known Medications
--- OUTSIDE RECORDS SUMMARY | 2018-12-03 05:59 | XMS REPORT ---
Author Author MAE Handley Organization [facility] Address [address] [place] [address] Care Team Providers Care Insurance Sales Supervisor Name Role Phone Ender MAE Unavailable PROBLEMS Type Condition ICD9-CM Code [id number] Code Onset Dates Condition Status SNOMED Code Problem Intermittent explosive disorder in adult F63.81 Active 533863952 Problem Uncomplicated alcohol dependence F10.20 Active 30845799 Problem Alcohol abuse F10.10 Active 98840713 Problem Reactive depression F32.9 Active 70830880 Problem Anxiety and depression F41.8 Active 457794485 ALLERGIES No Information ENCOUNTERS Encounter Location Date Diagnosis [place] [id number] [place] [phone] Nov, Alcohol abuse F10.10 ; Uncomplicated alcohol dependence F10.20 ; Intermittent explosive disorder in adult F63.81 and Anxiety and depression F41.8 [place] [id number] [place] [address] 17910- [address] 30 Oct, 2017 Alcohol abuse F10.10 ; Anxiety and depression F41.8 ; Uncomplicated alcohol dependence F10.20 and Intermittent explosive disorder in adult F63.81 [address] [place] [address] 89397- 48[address] Oct, Reactive depression F32.9 ; Anxiety and depression F41.8 ; Uncomplicated alcohol dependence F10.20 ; Intermittent explosive disorder in adult F63.81 and Alcohol abuse F10.10 [place] [id number] [place] [address] 27582- 5396 Oct, Reactive depression F32.9 ; Anxiety and depression F41.8 ; Alcohol abuse F10.10 ; Uncomplicated alcohol dependence F10.20 and Intermittent explosive disorder in adult F63.[address] [id number] [address] Oct, Alcohol abuse F10.10 ; Anxiety and depression F41.8 and Reactive depression F32.9 [place] [address] [place] [id number] [place] [address] 87861- 3260 Oct, Alcohol abuse F10.10 ; Anxiety and depression F41.8 and Reactive depression F32.9 [place] [address] [place] [id number] [place] [address] 55936- 8714 Aug, Reactive depression F32.9 ; Alcohol abuse F10.10 ; Anxiety and depression F41.8 ; Intermittent explosive disorder in adult F63.81 and Uncomplicated alcohol dependence F10.20 [place] [address] [place] [id number] [place] [address] 49711- 7581 Aug, Alcohol abuse F10.10 ; Anxiety and depression F41.8 ; Reactive depression F32.9 ; Uncomplicated alcohol dependence F10.20 and Intermittent explosive disorder in adult F63.81 [place] [address] [place] [id number] [place] [address] 91292- 3609 Aug, Alcohol abuse F10.10 ; Anxiety and depression F41.8 ; Reactive depression F32.9 and Uncomplicated alcohol dependence F10.20 [place] [id number] [place] [address] 75430- 16[address] Jul, Alcohol abuse F10.10 ; Anxiety and depression F41.8 ; Reactive depression F32.9 and Uncomplicated alcohol dependence F10.20 [place] [id number] [place] [address] 35368- 1400 Jul, Reactive depression F32.9 ; Anxiety and depression F41.8 ; Alcohol abuse F10.10 and Uncomplicated alcohol dependence F10.20 [place] [id number] [place] [address] 53015- 4408 Jul, Reactive depression F32.9 ; Anxiety and depression F41.8 ; Alcohol abuse F10.10 and Uncomplicated alcohol dependence F10.20 [place] [address] [id number] [address] Jul, Alcohol abuse F10.10 ; Anxiety and depression F41.8 ; Reactive depression F32.9 and Uncomplicated alcohol dependence F10.20 [place] [address] [place] [id number] [place] [address] 18354- 2229 May, Reactive depression F32.9 ; Anxiety and depression F41.8 and Alcohol abuse F10.10 [place] [address] [place] [id number] [place] [address] 19056- 1057 May, Alcohol abuse F10.10 ; Anxiety and depression F41.8 and Reactive depression F32.9 [place] [id number] [place] [address] 51575- 9164 May, Alcohol abuse F10.10 ; Anxiety and depression F41.8 and Reactive depression F32.9 [place] [address] [place] [address] 14584- 8346 May, Reactive depression F32.9 ; Anxiety and depression F41.8 and Alcohol abuse F10.10 IMMUNIZATIONS No Known Immunizations SOCIAL HISTORY Never Assessed REASON FOR VISIT BH f/u, Depression, alcohol sbuse PLAN OF CARE Activity Details Follow Up Next available, 2 Weeks Reason:Depression, substance abuse VITAL SIGNS MEDICATIONS Unknown Medications RESULTS No Results PROCEDURES Procedure Date Ordered Result Body Site Psychotherapy, patient &/family, 45 minutes, established patient May 29, 2017 INSTRUCTIONS MEDICATIONS ADMINISTERED No Known Medications
--- OUTSIDE RECORDS SUMMARY | 2018-12-03 05:59 | XMS REPORT ---
Author Author MAE Handley Organization [facility] Address [address] [place] [address] Care Team Providers Care Analyst Name Role Phone Ender MAE Unavailable PROBLEMS Type Condition ICD9-CM Code [id number] Code Onset Dates Condition Status SNOMED Code Problem Intermittent explosive disorder in adult F63.81 Active 691098703 Problem Uncomplicated alcohol dependence F10.20 Active 89308622 Problem Alcohol abuse F10.10 Active 76085740 Problem Reactive depression F32.9 Active 24705642 Problem Anxiety and depression F41.8 Active 846416385 ALLERGIES No Information ENCOUNTERS Encounter Location Date Diagnosis [place] [id number] [place] [address] 179[address] Nov, Alcohol abuse F10.10 ; Uncomplicated alcohol dependence F10.20 ; Intermittent explosive disorder in adult F63.81 and Anxiety and depression F41.8 [place] [id number] [place] [address] 68339- 68[address] 30 Oct, 2017 Alcohol abuse F10.10 ; Anxiety and depression F41.8 ; Uncomplicated alcohol dependence F10.20 and Intermittent explosive disorder in adult F63.81 [address] [place] [address] 90165- 3669 Oct, Reactive depression F32.9 ; Anxiety and depression F41.8 ; Uncomplicated alcohol dependence F10.20 ; Intermittent explosive disorder in adult F63.81 and Alcohol abuse F10.10 [place] [id number] [place] [address] 00706- 2734 Oct, Reactive depression F32.9 ; Anxiety and depression F41.8 ; Alcohol abuse F10.10 ; Uncomplicated alcohol dependence F10.20 and Intermittent explosive disorder in adult F63.[address] [id number] [address] Oct, Alcohol abuse F10.10 ; Anxiety and depression F41.8 and Reactive depression F32.9 [place] [address] [place] [id number] [place] [address] 05451- 5239 Oct, Alcohol abuse F10.10 ; Anxiety and depression F41.8 and Reactive depression F32.9 [place] [address] [place] [id number] [place] [address] 01143- 6792 Aug, Reactive depression F32.9 ; Alcohol abuse F10.10 ; Anxiety and depression F41.8 ; Intermittent explosive disorder in adult F63.81 and Uncomplicated alcohol dependence F10.20 [place] [address] [place] [id number] [place] [address] 91722- 4414 Aug, Alcohol abuse F10.10 ; Anxiety and depression F41.8 ; Reactive depression F32.9 ; Uncomplicated alcohol dependence F10.20 and Intermittent explosive disorder in adult F63.81 [place] [address] [place] [id number] [place] [address] 33439- 0169 Aug, Alcohol abuse F10.10 ; Anxiety and depression F41.8 ; Reactive depression F32.9 and Uncomplicated alcohol dependence F10.20 [place] [address] [place] [address] 16839- 9794 Jul, Alcohol abuse F10.10 ; Anxiety and depression F41.8 ; Reactive depression F32.9 and Uncomplicated alcohol dependence F10.20 [place] [address] [place] [address] 20064- 2390 Jul, Reactive depression F32.9 ; Anxiety and depression F41.8 ; Alcohol abuse F10.10 and Uncomplicated alcohol dependence F10.20 [place] [address] [place] [address] 64118- 0207 Jul, Reactive depression F32.9 ; Anxiety and depression F41.8 ; Alcohol abuse F10.10 and Uncomplicated alcohol dependence F10.20 [place] [address] [place] [id number] [address] Jul, Alcohol abuse F10.10 ; Anxiety and depression F41.8 ; Reactive depression F32.9 and Uncomplicated alcohol dependence F10.20 [place] [address] [place] [id number] [place] [address] 62948- 5311 May, Reactive depression F32.9 ; Anxiety and depression F41.8 and Alcohol abuse F10.10 [place] [address] [place] [id number] [place] [address] 58821- 6117 May, Alcohol abuse F10.10 ; Anxiety and depression F41.8 and Reactive depression F32.9 [place] [id number] [place] [address] 91462- [address] May, Alcohol abuse F10.10 ; Anxiety and depression F41.8 and Reactive depression F32.9 [place] [address] [place] [address] 21571- 1003 May, Reactive depression F32.9 ; Anxiety and depression F41.8 and Alcohol abuse F10.10 IMMUNIZATIONS No Known Immunizations SOCIAL HISTORY Never Assessed REASON FOR VISIT f/u PLAN OF CARE Activity Details Follow Up 2 Weeks Reason: VITAL SIGNS MEDICATIONS Unknown Medications RESULTS No Results PROCEDURES Procedure Date Ordered Result Body Site Psychotherapy, patient &/family, 30 minutes, established patient Jun 05, 2017 INSTRUCTIONS MEDICATIONS ADMINISTERED No Known Medications
[2018-12-03] MEDS ORDERED: SERTRALINE HCL 50 MG (06:38)
[2018-12-03] MEDS ORDERED: HYDROXYZINE PAMOATE 50 MG (06:38)
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
[2018-12-03 06:48] LABS: HEMOGLOBIN 18.7 G/DL (13.3-17.7); MEAN CORPUSCULAR HEMOGLOBIN 33 PG (25-34)
[2018-12-03 06:49] LABS: BASOPHILS # (AUTO) 0.1 10^3/uL (0.0-0.1); BASOPHILS % (AUTO) 1 % (0-10); EOSINOPHILS # (AUTO) 0.1 10^3/uL (0.0-0.3); EOSINOPHILS % (AUTO) 2 % (0-10); HEMATOCRIT 54 % (40-54); LYMPHOCYTES # (AUTO) 2.3 X 10^3 (1.0-4.0); LYMPHOCYTES % (AUTO) 32 % (12-44); MEAN CORPUSCULAR HGB CONC 34 G/DL (32-36); MEAN CORPUSCULAR VOLUME 97 FL (80-99); MEAN PLATELET VOLUME 9.7 FL (7.4-10.4); MONOCYTES # (AUTO) 0.3 X 10^3 (0.0-1.0); MONOCYTES % (AUTO) 4 % (0-12); NEUTROPHILS # (AUTO) 4.3 X 10^3 (1.8-7.8); NEUTROPHILS % (AUTO) 61 % (42-75); PLATELET COUNT 331 10^3/uL (130-400); RED CELL DISTRIBUTION WIDTH 12.9 % (10.0-14.5)
--- NOTE | 2018-12-03 07:07 | NUR ---
report to artemio
[2018-12-03 07:11] LABS: ALANINE AMINOTRANSFERASE 12 U/L (0-55); ALKALINE PHOSPHATASE 72 U/L (40-136); BILIRUBIN,TOTAL 0.2 MG/DL (0.1-1.0); BUN/CREATININE RATIO 14; CALCIUM 9.2 MG/DL (8.5-10.1); CARBON DIOXIDE 27 MMOL/L (21-32); CHLORIDE 101 MMOL/L (98-107); CREATININE SERUM 0.69 MG/DL (0.60-1.30); GFR ESTIMATED > 60; GLUCOSE 102 MG/DL (70-105); POTASSIUM 3.9 MMOL/L (3.6-5.0); SODIUM 144 MMOL/L (135-145)
[2018-12-03 07:12] LABS: ACETAMINOPHEN < 10 UG/ML (10-30); SALICYLATE < 0.3 MG/DL (5.0-20.0); TOTAL PROTEIN 8.2 GM/DL (6.4-8.2)
[2018-12-03 07:27] LABS: CANNABINOID SCREEN, URINE POSITIVE (NEGATIVE)
[2018-12-03 07:28] LABS: AMPHETAMINE SCREEN, URINE NEGATIVE (NEGATIVE); BARBITURATE SCREEN URINE NEGATIVE (NEGATIVE); BENZODIAZEPINES SCREEN URINE NEGATIVE (NEGATIVE); COCAINE SCREEN URINE NEGATIVE (NEGATIVE); METHADONE STAT NEGATIVE (NEGATIVE); METHAMPHETAMINE SCREEN URINE S NEGATIVE (NEGATIVE); OPIATE SCREEN URINE NEGATIVE (NEGATIVE); OXYCODONE STAT NEGATIVE (NEGATIVE); PROPOXYPHENE STAT NEGATIVE (NEGATIVE); TRICYCLIC ANTIDEPRESSANTS SCRE NEGATIVE (NEGATIVE)
[2018-12-03 07:29] LABS: BACTERIA,URINE NEG /HPF; BILIRUBIN,URINE NEGATIVE (NEGATIVE); CLARITY,URINE CLEAR; COLOR,URINE YELLOW; GLUCOSE, URINE (UA) NEGATIVE (NEGATIVE); KETONES,URINE NEGATIVE (NEGATIVE); LEUKOCYTE ESTERASE ,URINE NEGATIVE (NEGATIVE); NITRITE,URINE NEGATIVE (NEGATIVE); PROTEIN,URINE NEGATIVE (NEGATIVE); UROBILINOGEN,URINE 0.2 MG/DL (NORMAL); WBC,URINE RARE /HPF
[2018-12-03 07:30] LABS: SQUAMOUS EPITHELIAL CELL,UR 0-2 /HPF
--- NOTE | 2018-12-03 07:45 | NUR ---
Patient cooperative with staff, patient to restroom at this time, patient given ice water and food. [facility] after-hours line called, they will not screen patient until ETOH level is under 100. Physician and patient notified.
--- NOTE | 2018-12-03 08:40 | NUR ---
Patient resting quietly in room with eyes closed.
--- NOTE | 2018-12-03 09:45 | NUR ---
Patient resting quietly in room with eyes closed.
--- NOTE | 2018-12-03 10:30 | NUR ---
Patient resting quietly in room with eyes closed.
--- NOTE | 2018-12-03 11:00 | NUR ---
ETOH level re-drawn, patient to restroom, offered fluids and food.
--- NOTE | 2018-12-03 12:14 | NUR ---
Called [facility] to request screening.
--- NOTE | 2018-12-03 12:23 | NUR ---
Spoke to John at [facility]. Stated he will be here at around 1400 to screen patient.
--- NOTE | 2018-12-03 12:25 | NUR ---
Patient informed that screener will be here at 1400, offered food, fluids, and restroom.
--- NOTE | 2018-12-03 13:00 | NUR ---
Patient given fluids and food for lunch.
--- NOTE | 2018-12-03 14:05 | NUR ---
Screener from [facility] here to speak with patient.
--- NOTE | 2018-12-03 15:00 | NUR ---
Screener continues to speak with patient.
[2018-12-03 15:55] VITALS: BP 142/82
--- NOTE | 2018-12-03 15:55 | NUR ---
Per John from [facility], patient to go home with safety plan.
== END 2018-12-03 15:55 | disposition home or self-care (01) ==
LOC: ER FS 05:54
DX: F32.9 Major depressive disorder, single episode, unspecified (principal); F10.10 Alcohol abuse, uncomplicated; Z88.8 Allergy status to other drugs, medicaments and biological substances; Z90.89 Acquired absence of other organs
CPT/HCPCS: 36415; 80053; 80306; 80320; 80329; 81000; 85025